=== PATIENT | female | born 1995 | race African-American/Black ===

== ENCOUNTER 2020-10-20 15:09 | Emergency (ER) | payer SELFPAY ==
[~2020-10-20] VITALS: Ht 167.6 cm; Wt 59.0 kg
[2020-10-20] MEDS ORDERED: HYDROcodone/APAP 5/325 TABLET PO ONE (16:30)
[2020-10-20] MEDS ORDERED: HYDROcodone/APAP 5/325 TABLET ONE (16:51)
--- NOTE | 2020-10-20 17:01 | NUR ---
GIVEN PAIN MEDS PO, AWAITING US NO NEEDS AT THIS TIME.
--- NOTE | 2020-10-20 17:36 | NUR ---
cont to await us. as
[2020-10-20 18:30] VITALS: BP 110/70
== END 2020-10-20 19:26 | disposition home or self-care (01) ==
LOC: ED 15:39
DX: R10.10 Upper abdominal pain, unspecified (principal); Y04.0XXA Assault by unarmed brawl or fight, initial encounter; Y93.89 Activity, other specified; Y92.69 Other specified industrial and construction area as the place of occurrence of the external cause; Y99.8 Other external cause status
CPT/HCPCS: 76700; 99284